=== PATIENT | female | born 1985 | race African-American/Black ===

== ENCOUNTER 2019-02-18 02:32 | Emergency (ER) | payer MEDICAID ==
[~2019-02-18] VITALS: Ht 177.8 cm; Wt 99.8 kg
[2019-02-18 02:40] VITALS: BP 163/111
--- NOTE | 2019-02-18 02:40 | NUR ---
ED Nurse Note: PT ambulated to ED from home c/o dog bite to R forearm and R hip, Pt is A&Ox4, VSS 6/10 pain. Pt is not up to date with tetanus vaccine.
--- NOTE | 2019-02-18 02:54 | Emergency Room Report ---
History of Present Illness General Chief Complaint: Animal Bite Source: Patient Present Illness HPI Is a 33-year-old female with no past medical history. She presents with chief complaint of a dog bite. She was going home from work walking to her car when a dog bit her. It bit her on the abdomen and right forearm. This occurred just prior to arrival. Pain is 9 out of 10. No active bleeding. No other injury. Denies any other complaint. Tetanus shot not up-to-date. Allergies: Coded Allergies: No Known Allergies (Unverified , 02/18/19) Patient History Past Medical History: see triage record, old chart reviewed Past Surgical History: none Pertinent Family History: none Social History: Denies: smoking Now: No Immunizations: other Reviewed Nursing Documentation: PMH: Agreed; PSxH: Agreed Nursing Documentation-PM Past Medical History: No Stated History Review of Systems Eye: Denies: eye pain, blurred vision ENT: Denies: ear pain, nose congestion, throat swelling Respiratory: Denies: cough, shortness of breath Cardiovascular: Denies: chest pain, palpitations Gastrointestinal: Denies: abdominal pain, diarrhea, nausea, vomiting Musculoskeletal: Denies: back pain, joint pain Skin: Denies: rash Neurological: Denies: headache, numbness Endocrine: Denies: increased thirst, increased urine Hematologic/Lymphatic: Denies: easy bruising All Other Systems: negative except mentioned in HPI Physical Exam Vital Signs Date Time Temp Pulse Resp B/P (MAP) Pulse Ox O2 Delivery O2 Flow Rate FiO2 02/18/19 02:34 98.4 95 18 163/111 (128) 98 Room Air vitals with high blood pressure Sp02 EP Interpretation: reviewed, normal General Appearance: well appearing, no apparent distress, alert Head: normocephalic, atraumatic Eyes: bilateral eye PERRL, bilateral eye EOMI ENT: hearing grossly normal, normal pharynx Neck: full range of motion, supple, no meningismus Respiratory: chest non-tender, lungs clear, normal breath sounds Cardiovascular #1: regular rate, rhythm, no murmur Gastrointestinal: normal bowel sounds, no mass, no organomegaly, no bruit, non- distended, other - Abrasion and puncture wound to the right lower quadrant/ flank area Musculoskeletal: back normal, gait/station normal, normal range of motion, other - Right forearm: Multiple superficial puncture jeramie and abrasion to the forearm. No foreign body. Tender to palpation. Psychiatric: mood/affect normal Medical Decision Making Diagnostic Impression: Primary Impression: Open wound of abdominal wall due to dog bite Additional Impression: Dog bite of right forearm Qualified Codes: S51.851A - Open bite of right forearm, initial encounter; W54.0XXA - Bitten by dog, initial encounter ER Course Presents with a dog bite to her wall and forearm.. We will not suture because of this. Wound irrigated and dressed. Augmentin started. Low risk for rabies. Last Vital Signs Date Time Temp Pulse Resp B/P (MAP) Pulse Ox O2 Delivery O2 Flow Rate FiO2 02/18/19 02:34 98.4 95 18 163/111 (128) 98 Room Air Status: improved Disposition: HOME, SELF-CARE Condition: Stable Scripts Ibuprofen* (MOTRIN*) 600 Mg Tablet 600 MG ORAL THREE TIMES A DAY, #30 TAB 0 Refills Prov: Cali Rawls MD 02/18/19 Amoxicillin/Potassium Clav 875-125* (AUGMENTIN 875-125 TABLET*) 1 Each Tablet 1 TAB ORAL TWICE A DAY, #14 TAB Prov: Cali Rawls MD 02/18/19 Referrals: NON PHYSICIAN (PCP) Patient Instructions: Animal Bite Additional Instructions: Follow up your doctor in 7 days for recheck. Keep wound clean. Clean with hydrogen peroxide first and then apply antibiotic ointment. Return if worse. Cali Rawls MD Feb 18, 2019 02:54
[2019-02-18] MEDS ORDERED: IBUPROFEN600 MG ORAL (02:56)
[2019-02-18] MEDS ORDERED: AUGMENTIN 875-1 EAC1 ORAL (02:56)
[2019-02-18] MEDS ORDERED: Neosporin Oint Ud Pkt TOPIC ONE ×2 (02:56→03:00)
[2019-02-18] MEDS ORDERED: Tetanus/Diptheria/Pertussis IM ONE (03:00)
[2019-02-18] MEDS ORDERED: HYDROcodone/Acetamin 5/325 tab ORAL ONE (03:00)
[2019-02-18] MEDS ORDERED: Augmentin 875mg Tab ORAL ONE (03:00)
[2019-02-18 03:10] VITALS: BP 163/111
--- NOTE | 2019-02-18 03:10 | NUR ---
ER DISCHARGE NOTE: Patient is cleared to be discharged per ERMD, pt is aox4, on room air, with stable vital signs. pt was given dc and prescription instructions, pt was able to verbalize understanding, pt id band removed. pt is able to ambulate with steady gait. pt took all belongings. Pt's wounds were cleaned with NS, neosporin applied and dressed.
== END 2019-02-18 03:10 | disposition home or self-care (01) ==
LOC: EMR 02:50
DX: S31.159A Open bite of abdominal wall, unspecified quadrant without penetration into peritoneal cavity, initial encounter (principal); S51.851A Open bite of right forearm, initial encounter; Z23 Encounter for immunization; W54.0XXA Bitten by dog, initial encounter; Y92.9 Unspecified place or not applicable
CPT/HCPCS: 90471; 90715; 99282